=== PATIENT | female | born 1990 | race Two or more races ===

== ENCOUNTER 2019-09-06 05:52 | Day surgery (SDC) | payer OTHER ==
[~2019-09-06] VITALS: Ht 160 cm; Wt 47.2 kg
[2019-09-06] VITALS (11 sets, daily range): BP systolic 93–109; BP diastolic 46–72
--- NOTE | 2019-09-06 07:08 | Anethesia Preoperative Eval ---
Anesthesia Pre-op PMH/ROS General Date of Evaluation: Sep 06, 2019 Time of Evaluation: 07:36 Anesthesiologist: Chacha ASA Score: ASA 1 Mallampati Score Class I : Soft palate, uvula, fauces, pillars visible Class II: Soft palate, uvula, fauces visible Class III: Soft palate, base of uvula visible Class IV: Only hard plate visible Mallampati Classification: Class I Surgeon: Paige Diagnosis: Abd Pain Surgical Procedure: Hysteroscopy, D&C, Polypectomy Anesthesia History: none Family History: no anesthesia problems Allergies: Coded Allergies: Coffee (Verified Adverse Reaction, Intermediate, excesive coughing, ) Medications: see eMAR Patient NPO?: Yes Past Medical History Musculoskeletal/Integumentary: Reports: other - Back Pain Anesthesia Pre-op Phys. Exam Physician Exam Last Vital Signs Date Time Temp Pulse Resp B/P (MAP) Pulse Ox O2 Delivery O2 Flow Rate FiO2 09/06/19 06:41 Room Air 09/06/19 06:37 97.5 59 18 109/61 100 Constitutional: NAD Neurologic: CN 2-12 intact Cardiovascular: RRR Respiratory: CTA Gastrointestinal: S/NT/ND Airway Exam Mallampati Score: Class I MO: full ROM: full Teeth: intact Anesthesia Pre-op A/P Labs Urine Test Test 09/06/19 06:16 Urine HCG, Qualitative Pending Risk Assessment & Plan Assessment: ASA 1 Plan: GA, SED, GlideScope Go Status Change Before Surgery: No Pre-Antibiotics Dru Gram Ancef IV Given Within 1 Hr of Incision: Yes Time Given: 08:01 Juan José Burnham MD Sep 06, 2019 07:08
--- NOTE | 2019-09-06 07:08 | Immediate Post-Op Evaluation ---
Immediate Post-Op Evalulation Immediate Post-Op Evalulation Procedure: Hysteroscopy, D&C, Polypectomy Date of Evaluation: Sep 06, 2019 Time of Evaluation: 09:27 IV Fluids: 800 LR Blood Products: 0 Estimated Blood Loss: 30 Urinary Output: 0 Blood Pressure Systolic: 91 Blood Pressure Diastolic: 49 Pulse Rate: 59 Respiratory Rate: 16 O2 Sat by Pulse Oximetry: 100 Temperature (Fahrenheit): 98.2 Pain Score (1-10): 2 Nausea: No Vomiting: No Complications 0 Patient Status: awake, reacts, patent, extubated, none Hydration Status: adequate Dru Gram Ancef IV Given Within 1 Hr of Incision: Yes Time Given: 08:01 Juan José Burnham MD Sep 06, 2019 07:08
[2019-09-06] MEDS ORDERED: Sodium Chloride 10ml vial INJ ONE (07:14)
[2019-09-06] MEDS ORDERED: Lidocaine 1% MPF 10mg/ml 5ml ONE (07:14)
[2019-09-06] MEDS ORDERED: Dexamethasone 4mg/ml vial ONE (07:14)
[2019-09-06] MEDS ORDERED: Propofol 200mg/20ml IV ONE (07:14)
[2019-09-06] MEDS ORDERED: fentaNYL 100 mcg/2 mL IV ONE (07:15)
[2019-09-06] MEDS ORDERED: Lidocaine 1% Plain 30 ml INJ ONE (07:19)
[2019-09-06] MEDS ORDERED: NS Irrig 1000ml IRRIG ONE ×2 (07:26→08:12)
[2019-09-06] MEDS ORDERED: Sterile Water Irrig 1000ml IRRIG ONE (07:30)
[2019-09-06] MEDS ORDERED: LR 1000ml ONE (07:30)
[2019-09-06] MEDS ORDERED: NS Irrig 1000ml ONE (07:30)
--- NOTE | 2019-09-06 07:48 | Pre-Procedure Note/Attestation ---
Pre-Procedure Note/Attestation Complete Prior to Procedure Planned Procedure: not applicable Procedure Narrative: D&C, Hysteroscopy, possible endometrial polypectomy, possible transcervical myomectomy Indications for Procedure Pre-Operative Diagnosis: Endometrial Mass Attestation I attest that I discussed the nature of the procedure; its benefits; risks and complications; and alternatives (and the risks and benefits of such alternatives ), prior to the procedure, with the patient (or the patient's legal outbound telemarketing representative). I attest that, if there was a reasonable possibility of needing a blood transfusion, the patient (or the patient's legal outbound telemarketing representative) was given the [facility] standardized written summary, pursuant to the Wilver Sergio Blood Safety Act ([place] Health and Safety Code # 1645, as amended). I attest that I re-evaluated the patient just prior to the surgery and that there has been no change in the patient's H&P, except as documented below: Han Gibson MD Sep 06, 2019 07:48
[2019-09-06] MEDS ORDERED: LR 1000ml 1,000 ML IVLG SCH (07:49)
[2019-09-06] MEDS ORDERED: CEFOXITIN IVPB ONE (08:00)
[2019-09-06] MEDS ORDERED: Meperidine 25mg/0.5ml Inj (FOR RIGORS ONLY) IV PRN (08:00)
[2019-09-06] MEDS ORDERED: fentaNYL 100 mcg/2 mL IV PRN (08:00)
[2019-09-06] MEDS ORDERED: Ketorolac 30mg Inj IV PRN ×2 (08:00)
[2019-09-06] MEDS ORDERED: oxyCODONE HCL/Acetaminophen 5/325mg ORAL PRN (08:00)
[2019-09-06] MEDS ORDERED: D5W IVPB ONE (08:00)
[2019-09-06] MEDS ORDERED: Metoclopramide 10mg/2ml Inj IVP PRN (08:00)
[2019-09-06] MEDS ORDERED: Atropine Sulfate 0.4mg/ml inj IVP PRN (08:00)
[2019-09-06] MEDS ORDERED: Hydromorphone 0.5mg/0.5ml inj IVP PRN (08:00)
[2019-09-06] MEDS ORDERED: LORazepam Inj 2mg/ml 1ml IV PRN (08:00)
[2019-09-06] MEDS ORDERED: DiphenhydrAMINE 50mg/ml Inj IVP PRN (08:00)
[2019-09-06] MEDS ORDERED: Labetalol 5mg/ml 20ml vial IV PRN (08:00)
[2019-09-06] MEDS ORDERED: Midazolam 2mg/2ml Inj IVP PRN (08:00)
[2019-09-06] MEDS ORDERED: HYDROcodone/Acetamin 5/325 tab ORAL PRN ×2 (08:00→13:30)
[2019-09-06] MEDS ORDERED: Acetaminophen (Non formulary) 100 ML IV ONE (08:00)
[2019-09-06] MEDS ORDERED: HYDROcodone/Acetamin 7.5/325 tab ORAL PRN (08:00)
[2019-09-06] MEDS ORDERED: Glycopyrrolate 0.2mg/ml 1ml Vial ONE (08:41)
[2019-09-06] MEDS ORDERED: Neostigmine 1mg/ml 10ml Inj ONE (08:41)
--- NOTE | 2019-09-06 08:49 | Brief Operative Note ---
Immediate Post Operative Note Operative Note Pre-op Diagnosis: Endometrial Mass Procedure: Multiple polypectomy > 12 polyps Post-op Diagnosis: Large number of uterine polyps >12 Post-op Diagnosis: same as pre-op plus Findings: consistent w/pre-op dx studies Surgeon: Han Gibson MD Dental Associate: -- Anesthesiologist: Juan José Burnham MD Anesthesia: general Specimen: yes Complications: none Condition: stable Fluids: LR @125 cc/hr Estimated Blood Loss: minimal - 50 ml Drains: none Implant(s) used?: No Han Gibson MD Sep 06, 2019 08:49
[2019-09-06] MEDS ORDERED: Ketorolac 30mg Inj ONE (09:04)
--- NOTE | 2019-09-06 09:10 | 48 Hour Post Anesthesia Eval ---
Post Anesthesia Evaluation Procedure: Hysteroscopy, D&C, Polypectomy Date of Evaluation: Sep 06, 2019 Time of Evaluation: 11:43 Blood Pressure Systolic: 101 0: 45 Pulse Rate: 59 Respiratory Rate: 18 Temperature (Fahrenheit): 98.4 O2 Sat by Pulse Oximetry: 100 Airway: patent Nausea: No Vomiting: No Pain Intensity: 2 Hydration Status: adequate Cardiopulmonary Status: Stable Mental Status/LOC: patient returned to baseline Follow-up Care/Observations: 0 Post-Anesthesia Complications: 0 Follow-up care needed: ready to discharge Juan José Burnham MD Sep 06, 2019 09:10
[2019-09-06] MEDS ORDERED: Flumazenil 0.1mg/ml 5ml Inj IV ONE (09:29)
--- NOTE | 2019-09-06 13:15 | Operative Note - Dictated ---
DATE OF OPERATION: 09/06/2019 PREOPERATIVE DIAGNOSIS: Endometrial mass, possible polyp, possible submucosal fibroid. POSTOPERATIVE DIAGNOSIS: Multiple large number of endometrial polyps greater than 12 in number. PROCEDURE PERFORMED: Extensive multiple polypectomy of the large number of polyps. SURGEON: Han Gibson M.D. IRONWORKER MACHINE OPERATOR: None. ANESTHESIOLOGIST: Juan José Burnham M.D. ANESTHESIA: General. APPROXIMATE BLOOD LOSS: Approximately 50 mL. PROCEDURE IN DETAIL: After all the appropriate consents were signed, the patient was brought to the operating room, placed on the table in supine position. General anesthesia was induced without complication. The patient was then placed in a dorsal lithotomy position. Perineum, vagina, and abdomen were prepped and draped in the usual fashion for the procedure. The patient was then examined under anesthesia. The cervix was visualized and the uterus was palpated and was found to be within normal limits. At this time, the cervical os was grasped and Hegar dilators were used to dilate it to 7 mm. Video hysteroscope was introduced and the hysteroscopy produced visualization of the cavity with both anterior right, left, and the bottom of the uterine cavity, littered with multiple polypoid projections. These were evaluated with hysteroscope and after direct visualization, they were grasped with polyp forceps and one by one removed and submitted to pathology for evaluation. This continued until no additional polyps could be identified visually. The number of polyps removed were 12. The forceps removal of the polyp followed by endometrial curettage and the endometrial cavity was then once again evaluated after the curettage and the cavity was fully flushed out with video hysteroscopic fluid. At this time, once the cavity was fully flushed, the endocervical curettage was performed and submitted to pathology for evaluation. At this time, the cervix was now evaluated, found to be fully hemostatic. The cervix was to approximately 8 cm. The patient was placed back in the supine position and awakened from general anesthesia. She was brought to the recovery in excellent condition. Han Gibson M.D. DR: ARDEN JOB#: [id number] CC:
[2019-09-06] MEDS ORDERED: Tylenol #3 tab (300mg/30mg) ORAL PRN (13:30)
[2019-09-06] MEDS ORDERED: D5 1/2NS 1,000 ML IV SCH (13:30)
[2019-09-06] MEDS ORDERED: HYDROmorphone 1mg/ml Carpuject SUBQ PRN (13:30)
== END 2019-09-06 11:00 | disposition home or self-care (01) ==
LOC: SUR 05:52
DX: N84.0 Polyp of corpus uteri (principal)
CPT/HCPCS: 58558; 81025; J0131; J0690; J1100; J1885; J2001; J2250; J2405; J2704; J2710; J3010; J7120; 94003; 94150